=== PATIENT | male | born 1995 | race Caucasian/White ===

== ENCOUNTER → 2017-06-12 | Outpatient (CLI) | payer BC ==
[~2017-06-12] MED LIST: IOPAMIDOL 76% 75 ML INFUS BTL 75 ML ONE
--- NOTE | 2017-06-12 16:00 | RADIOLOGY IMAGING REPORT ---
FACILITY: [facility] PATIENT NAME: Joseph Willingham : 1995 MR: [id number] V: [id number] EXAM DATE: ORDERING PHYSICIAN: FRANKLYN RUBIO TECHNOLOGIST: Location: [facility] Patient: Joseph Willingham : 1995 Visit/Account:[id number] Date of Sevice: 06/12/2017 EXAMINATION: CT abdomen and pelvis with contrast COMPARISON: None. HISTORY: Left-sided abdominal pain. Diarrhea. PROCEDURE: Multiplanar contrast enhanced CT of the abdomen and pelvis with 75 mL intravenous Isovue 3 70. One of the following dose optimization techniques was utilized in the performance of this exam: A utomated exposure control; adjustment of the mA and/or kV according to the patient's size; or use of an iterative reconstruction technique. Specific details can be referenced in the facility's radiolo gy CT exam operational policy. FINDINGS: Visualized thorax: Negative. Liver: Negative. Gallbladder and biliary system: Negative Spleen: Spleen size is normal. Pancreas: Negative. Adrenal glands: Negative. Kidneys and bladder: No renal mass or evidence of an obstructive uropathy. Urinary bladder is unrema rkable. Vessels: Within normal limits. Bowel and mesentery: Stomach is within normal limits. No small bowel obstruction or inflammation. Xavier endix is unremarkable. Minimal stool in the colon. Mild circumferential colonic wall thickening along the distal descending colon and proximal sigmoid. No colonic diverticula are identified. No pneumato sis. No extraluminal gas or fluid collection. Pelvic organs: Negative. Lymph nodes: No adenopathy. Free air/free fluid: None. Abdominal wall and osseous structures: Abdominal wall is intact. L4-L5 mild disc space loss. IMPRESSION: Distal descending colon and proximal sigmoid mild circumferential wall thickening suggestive of a low -grade uncomplicated infectious versus inflammatory colitis. Results were discussed with FRANKLYN RUBIO at 06/12/2017 3:54 PM. Report Dictated By: Bonilla Rust MD at 06/12/2017 3:42 PM Report E-Signed By: Bonilla Rust MD at 06/12/2017 3:55 PM WSN:[id number]
== END ==
LOC: CT 14:57
PROVIDERS: ATTEND Physician Assistant Medical
DX: K52.9 Noninfective gastroenteritis and colitis, unspecified (principal)
CPT/HCPCS: 74177; Q9967

== ENCOUNTER → 2017-06-12 | Outpatient (REF) | payer BC ==
[2017-06-12 14:26] LABS: PLATELET COUNT, AUTOMATED 294 K/uL (150-450)
== END ==
PROVIDERS: ATTEND Physician Assistant Medical
DX: R19.7 Diarrhea, unspecified (principal)
CPT/HCPCS: 82040; 82247; 82274; 82310; 82374; 82435; 82565; 82947; 83690; 84075; 84132; 84155; 84295; 84450; 84460; 84520; 85025; 87045